=== PATIENT | female | born 1980 | race Caucasian/White ===

== ENCOUNTER → 2020-03-21 | Outpatient (CLI) | payer BC, OTHER ==
[~2020-03-21] MED LIST: ACYC-114 PO; DIPH25CA61 PO; GOLI APPLE CIDER PO; LABE100T6 PO; MELA1TAB15 PO; MULT-658 PO; PHEN37.53 PO; TOPI50TA8 PO; [UNRECOGNIZED DRUG - OTHER] PO
[2020-03-21 16:49] LABS: BASOPHILS # (AUTO) 0.06 x10^3/uL (0-0.1); BASOPHILS % (AUTO) 1 % (0-1); EOSINOPHILS % (AUTO) 1 % (1-7); LYMPHOCYTES # (AUTO) 2.89 x10^3/uL (1-3.4); LYMPHOCYTES % (AUTO) 39 % (22-44); MD NO; MEAN CORPUSCULAR HEMOGLOBIN 30.3 pg (27.0-34.8); MEAN CORPUSCULAR HGB CONC 32.8 g/dL (32.4-35.8); MEAN CORPUSCULAR VOLUME 92.3 fL (80-100); MONOCYTES # (AUTO) 0.64 x10^3/uL (0.2-0.8); MONOCYTES % (AUTO) 9 % (2-9); NEUTROPHILS % (AUTO) 51 % (42-75); PLATELET COUNT 373 x10^3/uL (130-400); RED CELL DISTRIBUTION WIDTH 12.9 % (9.6-15.2)
[2020-03-21 16:57] LABS: ALANINE AMINOTRANSFERASE 26 U/L (12-78); ALBUMIN 3.9 g/dL (3.4-5.0); ANION GAP 4 mmol/L (5-15); CALCIUM 9.1 mg/dL (8.5-10.1); CHLORIDE 104 mmol/L (98-107); CREATININE 0.82 mg/dL (0.55-1.02)
[2020-03-21 17:01] LABS: ALKALINE PHOSPHATASE 75 U/L (45-117); BILIRUBIN,TOTAL 0.3 mg/dL (0.2-1.0); TOTAL PROTEIN 7.9 g/dL (6.4-8.2)
[2020-03-21 17:09] LABS: MICROSCOPIC AUTO
== END | disposition home or self-care (01) ==
LOC: STAR 15:32
PROVIDERS: ATTEND Obstetrics & Gynecology
DX: Z01.818 Encounter for other preprocedural examination (principal); N83.201 Unspecified ovarian cyst, right side
CPT/HCPCS: 36415; 80053; 81001; 84702; 85025; 87086

== ENCOUNTER 2020-03-28 12:37 | Day surgery (SDC) | payer BC, OTHER ==
[~2020-03-28] VITALS: Ht 162.6 cm; Wt 86.8 kg
[2020-03-28] MEDS ORDERED: DIAZEPAM 5 MG/ML, 2ML IVPush PRN (13:00)
[2020-03-28] MEDS ORDERED: MIDAZOLAM 1 MG/ML, 2ML IV PRN (13:00)
[2020-03-28] MEDS ORDERED: EPHEDRINE 50 MG/ML, 1ML IM PRN (13:00)
[2020-03-28] MEDS ORDERED: LABETALOL 5MG/ML, 20ML IV PRN (13:00)
[2020-03-28] MEDS ORDERED: ACETAMINOPHEN 325 MG TABLET PO PRN (13:00)
[2020-03-28] MEDS ORDERED: MEPERIDINE/PF 25MG/0.5ML IVPush PRN (13:00)
[2020-03-28] MEDS ORDERED: HYDROcodone/APAP 7.5-325MG/15ML UDC PO PRN (13:00)
[2020-03-28] MEDS ORDERED: KETOROLAC 30 MG/1 ML IVPush PRN (13:00)
[2020-03-28] MEDS ORDERED: METOCLOPRAMIDE 5 MG/ML, 2ML IVPush PRN (13:00)
[2020-03-28] MEDS ORDERED: ONDANSETRON 2MG/ML, 2ML IVPush PRN (13:00)
[2020-03-28] MEDS ORDERED: EPHEDRINE 50 MG/ML, 1ML IVPush PRN (13:00)
[2020-03-28] MEDS ORDERED: HYDROmorphone 1 MG/ML, 1ML INJ IVPush PRN (13:00)
[2020-03-28] MEDS ORDERED: DIPHENHYDRAMINE 50 MG/ML, 1ML IVPush PRN (13:00)
[2020-03-28] MEDS ORDERED: HALOPERIDOL 5 MG/ML IV PRN (13:00)
[2020-03-28] MEDS ORDERED: ALBUTEROL/IPRATROPIUM 2.5MG/0.5MG, 3 ML NPPB PRN (13:00)
[2020-03-28] MEDS ORDERED: hydrALAzine 20 MG/ML, 1ML IV PRN (13:00)
[2020-03-28] MEDS ORDERED: METHOCARBAMOL 1,000 MG in DEXTROSE 5% 100 ML IV PRN (13:00)
[2020-03-28] MEDS ORDERED: LORazepam 2 MG/ML, 1ML IVPush PRN (13:00)
[2020-03-28] MEDS ORDERED: LACTATED RINGERS 1,000 ML IV SCH (13:02)
[2020-03-28] MEDS ORDERED: GLYCOPYRROLATE 0.2MG/1ML, 5ML ONE (13:09)
[2020-03-28] MEDS ORDERED: DEXAMETHASONE 4 MG/ML, 1ML ONE (13:09)
[2020-03-28] MEDS ORDERED: LIDOCAINE-MPF 2% ,5ML ONE (13:09)
[2020-03-28] MEDS ORDERED: PROPOFOL 10 MG/ML, 20ML ONE (13:09)
[2020-03-28] MEDS ORDERED: MIDAZOLAM 1 MG/ML, 2ML ONE (13:09)
[2020-03-28] MEDS ORDERED: FENTANYL PF 250 MCG/5ML ONE (13:09)
[2020-03-28] MEDS ORDERED: ROCURONIUM 10MG/ML,5ML ONE (13:09)
[2020-03-28] MEDS ORDERED: CHLORHEXIDINE 15 ML UDC ONE (13:11)
[2020-03-28 13:20] LABS: HCG UR SG 1.022 (1.003-1.030)
[2020-03-28] MEDS ORDERED: CHLORHEXIDINE 15 ML UDC MM ONE (13:30)
[2020-03-28] MEDS ORDERED: BUPIVACAINE/PF-EPI 0.25% 1:200K ONE (13:51)
[2020-03-28] MEDS ORDERED: SILVER NITRATE STICK TP ONE (13:51)
[2020-03-28] MEDS ORDERED: VASOPRESSIN 20 UNIT/ML, 1ML ONE (14:04)
[2020-03-28] MEDS ORDERED: CEFAZOLIN 1,000 MG ONE (14:13)
[2020-03-28] MEDS ORDERED: OXYcodone 5 MG/5 ML ORAL.SOL UDC ONE (16:19)
[2020-03-28] MEDS ORDERED: FENTANYL PF 100 MCG/2ML ONE (16:19)
[2020-03-28] MEDS: OXYcodone 5 MG/5 ML ORAL.SOL UDC PO PRN ×2 (16:20→17:46)
[2020-03-28] MEDS: FENTANYL PF 100 MCG/2ML IV PRN ×3 (16:22→16:40)
[2020-03-28] MEDS ORDERED: KETOROLAC 30 MG/1 ML ONE (16:41)
== END 2020-03-28 17:50 | disposition home or self-care (01) ==
LOC: OUT 12:37
PROVIDERS: ATTEND Obstetrics & Gynecology
DX: N92.0 Excessive and frequent menstruation with regular cycle (principal); Z11.59 Encounter for screening for other viral diseases; Z30.2 Encounter for sterilization; D27.0 Benign neoplasm of right ovary; N83.8 Other noninflammatory disorders of ovary, fallopian tube and broad ligament; I10 Essential (primary) hypertension; E66.9 Obesity, unspecified; Z79.899 Other long term (current) drug therapy; Z90.49 Acquired absence of other specified parts of digestive tract; Z98.890 Other specified postprocedural states; Z82.49 Family history of ischemic heart disease and other diseases of the circulatory system
CPT/HCPCS: 36415; 58563; 58661; 81025; 86850; 86900; 87635; 88305; J0690; J1100; J1885; J2250; J2704; J3010; J7120